=== PATIENT | female | born 1995 | race Caucasian/White ===

== ENCOUNTER 2018-01-25 20:56 | Emergency (ER) | payer SELFPAY, MEDICAID | END 2018-01-26 01:50 | disposition left against medical advice (07) | LOC: FTE 20:56 | DX: Z53.21 Procedure and treatment not carried out due to patient leaving prior to being seen by health care provider (principal) ==

== ENCOUNTER 2018-03-23 21:55 | Emergency (ER) | payer MEDICAID ==
[2018-03-24 00:29] LABS: ADD MAN DIFF? NO
[2018-03-24 00:33] LABS: WHITE BLOOD COUNT 12.8 10^3/ul (4.8-10.8)
[2018-03-24 00:33] LABS: BASOPHILS % 0.3 % (0.0-2.0); EOSINOPHILS # 0.5 10^3/ul (0.0-0.5); EOSINOPHILS % 4.2 % (0.0-7.0); HEMATOCRIT 39.2 % (37.0-47.0); HEMOGLOBIN 13.4 g/dl (12.0-16.0); LYMPHOCYTES # 3.9 10^3/ul (0.8-2.9); LYMPHOCYTES % 30.8 % (18.0-55.0); MEAN CORPUSCULAR HEMOGLOBIN 29.8 pg (29.0-33.0); MEAN CORPUSCULAR HGB CONC 34.2 g/dl (32.0-37.0); MEAN CORPUSCULAR VOLUME 87.1 fl (72.0-104.0); MEAN PLATELET VOLUME 9.3 fl (7.4-10.4); MONOCYTE # 0.7 10^3/ul (0.3-0.9); MONOCYTES % 5.3 % (0.0-13.0); NEUTROPHIL # 7.5 10^3/ul (1.6-7.5); NEUTROPHILS % 59.1 % (30.0-74.0); PLATELET COUNT 384 10^3/UL (140-415); RED CELL DISTRIBUTION WIDTH 13.2 % (11.5-14.5)
[2018-03-24 00:53] LABS: ALANINE AMINOTRANSFERASE 18 IU/L (13-69); ALBUMIN 4.3 g/dl (3.3-4.9); ALBUMIN/GLOBULIN RATIO 1.13; ALKALINE PHOSPHATASE 59 IU/L (42-121); ANION GAP 12 (8-16); ASPARTATE AMINO TRANSFERASE 19 IU/L (15-46); BILIRUBIN,INDIRECT 0.4 mg/dl (0-1.1); BILIRUBIN,TOTAL 0.4 mg/dl (0.2-1.3); BLOOD UREA NITROGEN 7 mg/dl (7-20); CALCIUM 9.6 mg/dl (8.4-10.2); CARBON DIOXIDE 28 mmol/L (21-31); CHLORIDE 103 mmol/L (97-110); CREATININE 0.57 mg/dl (0.44-1.00); GLUCOSE 105 mg/dl (70-220); POTASSIUM 3.5 mmol/L (3.5-5.1); SODIUM 139 mmol/L (135-144); TOTAL PROTEIN 8.1 g/dl (6.1-8.1)
[2018-03-24 00:54] LABS: PROTIME 13.3 Sec (11.9-14.9)
[2018-03-24 00:55] LABS: PARTIAL THROMBOPLASTIN TIME 30.4 Sec (25.0-35.0)
[2018-03-24 01:02] LABS: TROPONIN-I < 0.012 ng/ml (0.000-0.120)
[2018-03-24 01:08] LABS: ADD UMIC YES; UR AMORPHOUS CRYSTAL FEW /HPF (NONE SEEN); UR ASCORBIC ACID NEGATIVE (NEGATIVE); UR BACTERIA FEW /HPF (NONE SEEN); UR BILIRUBIN (Dip) NEGATIVE (NEGATIVE); UR BLOOD (Dip) NEGATIVE (NEGATIVE); UR CLARITY CLOUDY (CLEAR); UR COLOR RED (YELLOW); UR GLUCOSE (Dip) NEGATIVE (NEGATIVE); UR KETONES (Dip) NEGATIVE (NEGATIVE); UR LEUKOCYTE ESTERASE (Dip) 2+ Leu/ul (NEGATIVE); UR NITRITE (Dip) NEGATIVE (NEGATIVE); UR RBC 5 /HPF (0-5); UR SPECIFIC GRAVITY (Dip) 1.005 (1.003-1.030); UR SQUAMOUS EPITHELIAL CELL MANY /HPF (FEW); UR TOTAL PROTEIN (Dip) NEGATIVE (NEGATIVE); UR TRANSITIONAL EPI CELL FEW /HPF (NONE SEEN); UR UROBILINOGEN (Dip) NEGATIVE (NEGATIVE); UR WBC 17 /HPF (0-5)
== END 2018-03-24 04:08 | disposition home or self-care (01) ==
LOC: FTE 03-24 04:08
DX: N39.0 Urinary tract infection, site not specified (principal)
CPT/HCPCS: 71046; 80053; 81001; 81025; 84484; 85025; 85610; 85730; 93005; 99285-25

== ENCOUNTER 2018-04-13 11:27 | Emergency (ER) | payer MEDICAID ==
[2018-04-13] MEDS: KETOROLAC 60 MG INJ IM (12:22)
== END 2018-04-13 12:56 | disposition home or self-care (01) ==
LOC: FTE 11:27
DX: G50.0 Trigeminal neuralgia (principal)
CPT/HCPCS: 81025; 96372; 99284-25

== ENCOUNTER 2018-04-14 16:12 | Emergency (ER) | payer MEDICAID ==
[2018-04-14] MEDS: HYDROCODONE/APAP (5/325) TAB PO (17:20)
[2018-04-14] MEDS: METOCLOPRAMIDE 10 MG TAB PO (17:20)
== END 2018-04-14 18:22 | disposition home or self-care (01) ==
LOC: FTE 16:12
DX: G43.109 Migraine with aura, not intractable, without status migrainosus (principal)
CPT/HCPCS: 70450; 99284-25

== ENCOUNTER 2018-06-10 12:39 | Emergency (ER) | payer MEDICAID ==
[2018-06-10] MEDS: IBUPROFEN 600 MG TAB PO (13:17)
[2018-06-10] MEDS: CEPHALEXIN 500 MG CAP PO (13:17)
== END 2018-06-10 13:50 | disposition home or self-care (01) ==
LOC: FTE 12:39
DX: K08.89 Other specified disorders of teeth and supporting structures (principal)
CPT/HCPCS: 99283; Z7502

== ENCOUNTER 2018-08-03 17:57 | Emergency (ER) | payer MEDICAID | END 2018-08-03 19:28 | disposition home or self-care (01) | LOC: FTE 17:57 | DX: J06.9 Acute upper respiratory infection, unspecified (principal) | CPT/HCPCS: 99283; Z7502 ==

== ENCOUNTER 2019-02-13 13:01 | Emergency (ER) | payer OTHER, MEDICAID ==
[2019-02-13 13:47] LABS: ADD MAN DIFF? NO
[2019-02-13 13:49] LABS: BASOPHILS % 0.4 % (0.0-2.0); EOSINOPHILS # 0.3 10^3/ul (0.0-0.5); EOSINOPHILS % 2.8 % (0.0-7.0); HEMATOCRIT 38.9 % (37.0-47.0); HEMOGLOBIN 13.4 g/dl (12.0-16.0); LYMPHOCYTES # 3.1 10^3/ul (0.8-2.9); LYMPHOCYTES % 34.7 % (15.0-51.0); MEAN CORPUSCULAR HEMOGLOBIN 29.8 pg (29.0-33.0); MEAN CORPUSCULAR HGB CONC 34.4 g/dl (32.0-37.0); MEAN CORPUSCULAR VOLUME 86.6 fl (82.0-101.0); MEAN PLATELET VOLUME 9.8 fl (7.4-10.4); MONOCYTE # 0.6 10^3/ul (0.3-0.9); MONOCYTES % 6.8 % (0.0-11.0); NEUTROPHIL # 4.9 10^3/ul (1.6-7.5); PLATELET COUNT 377 10^3/UL (140-415); RED BLOOD COUNT 4.49 10^6/ul (4.20-5.40); RED CELL DISTRIBUTION WIDTH 13.1 % (11.5-14.5)
[2019-02-13 14:05] LABS: ANION GAP 9 (5-13); BLOOD UREA NITROGEN 11 mg/dl (7-20); CALCIUM 9.9 mg/dl (8.4-10.2); CARBON DIOXIDE 24 mmol/L (21-31); CHLORIDE 106 mmol/L (97-110); CREATININE 0.63 mg/dl (0.44-1.00); Estimated GFR > 60 mL/min (>60); GLUCOSE 92 mg/dl (70-220); SODIUM 139 mmol/L (135-144)
== END 2019-02-13 14:36 | disposition home or self-care (01) ==
LOC: FTE 13:01
DX: R07.89 Other chest pain (principal)
CPT/HCPCS: 36415; 71045; 80048; 85025; 93005; 99285-25